=== PATIENT | male | born 1990 | race Caucasian/White ===

== ENCOUNTER 2016-07-25 23:53 | Emergency (ER) | payer SELFPAY ==
[~2016-07-25] VITALS: Ht 175.3 cm; Wt 70.5 kg
[2016-07-26 00:05] VITALS: Ht 175.3 cm; Wt 70.5 kg
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
[2016-07-26] MEDS ORDERED: IBUP-1542 PO (03:29)
[2016-07-26] MEDS ORDERED: ACET500C5 PO (03:29)
--- NOTE | 2016-07-26 03:31 | RADRPT ---
PROCEDURE: CT brain without contrast. CLINICAL INDICATION: Injury and pain. TECHNIQUE: CT scan of the brain was performed on a multi-detector high-resolution CT scanner. Co ntiguous axial images were obtained from the skull base to the vertex without intravenous contrast. Coronal and sagittal reformatted images were also obtained. Images were reviewed on the PACS works tation. One or more of the following dose reduction techniques were used: - Automated exposure control. - Adjustment of the mA and/or kV according to patient size. - Use of iterative reconstruction technique. Exam CTD/vol = 45.01 mGy. Total exam DLP = 720.23 mGy-cm. COMPARISON: None. FINDINGS: The ventricles and cortical sulci are within normal limits for patient's age. There are no areas of abnormal attenuation within the brain parenchyma. There is no mass effect or midline shift. There is no intracranial hemorrhage or abnormal extra-axial collection. The calvarium is intact. There is no evidence of fracture. Visualized paranasal sinuses and mastoid air cells are clear. IMPRESSION: No acute intracranial abnormality identified. .Ld Archer MD, MD Date Time Electronically viewed and signed by .Ld Archer MD, MD on 07/26/2016 03:31 .T/
[2016-07-26 03:46] VITALS: BP 138/87; PULSE 73; RESP 20; TEMP 98.6
== END 2016-07-26 03:46 | disposition home or self-care (01) ==
LOC: FTE 23:53
DX: S09.90XA Unspecified injury of head, initial encounter (principal); R51 Headache; V43.52XA Car driver injured in collision with other type car in traffic accident, initial encounter
CPT/HCPCS: 70450